=== PATIENT | female | born 1995 | race Caucasian/White ===

== ENCOUNTER 2021-06-14 07:19 | Outpatient (CLI) | payer OTHER | END 2021-06-14 08:09 | disposition home or self-care (01) | LOC: NST 07:19 | PROVIDERS: ATTEND Obstetrics & Gynecology Maternal & Fetal Medicine | DX: Z34.82 Encounter for supervision of other normal pregnancy, second trimester (principal) ==

== ENCOUNTER 2021-07-04 16:04 | Inpatient (IN) | payer OTHER ==
[~2021-07-04] VITALS: Ht 170.2 cm; Wt 76.2 kg
[2021-07-04] MEDS ORDERED: PRENATAL TABLE1 EAC1 PO (17:22)
== END 2021-07-06 12:46 | disposition home or self-care (01) | DRG 833 ==
LOC: OB/GYN 16:04 → LDR 16:04 → OB/GYN 07-05 08:34
PROVIDERS: ADMIT Obstetrics & Gynecology; ATTEND Obstetrics & Gynecology
PROC: 4A1HXCZ Monitoring of Products of Conception, Cardiac Rate, External Approach (ICD-10-PCS; principal; 2021-07-04)
DX: O60.03 Preterm labor without delivery, third trimester (principal); Z3A.30 30 weeks gestation of pregnancy; Z20.822 Contact with and (suspected) exposure to COVID-19

== ENCOUNTER 2021-07-19 07:16 | Outpatient (CLI) | payer OTHER ==
[~2021-07-19 07:16] MED LIST: PRENATAL TABLE1 EAC1 PO
== END 2021-07-19 07:52 | disposition home or self-care (01) ==
LOC: NST 07:16
PROVIDERS: ATTEND Obstetrics & Gynecology
DX: Z34.83 Encounter for supervision of other normal pregnancy, third trimester (principal)

== ENCOUNTER 2021-08-29 04:53 | Inpatient (IN) | payer OTHER ==
[~2021-08-29] VITALS: Ht 170.2 cm; Wt 80.7 kg
== END 2021-08-31 14:07 | disposition home or self-care (01) | DRG 807 ==
LOC: LDR 04:53 → OB/GYN 04:53
PROVIDERS: ADMIT Obstetrics & Gynecology; ATTEND Obstetrics & Gynecology
PROC: 10E0XZZ Delivery of Products of Conception, External Approach (ICD-10-PCS; principal; 2021-08-29)
PROC: 0W8NXZZ Division of Female Perineum, External Approach (ICD-10-PCS; 2021-08-29)
PROC: 4A1HXCZ Monitoring of Products of Conception, Cardiac Rate, External Approach (ICD-10-PCS; 2021-08-29)
DX: O80 Encounter for full-term uncomplicated delivery (principal); Z37.0 Single live birth; Z3A.38 38 weeks gestation of pregnancy; Z20.822 Contact with and (suspected) exposure to COVID-19

== ENCOUNTER 2023-05-07 07:11 | Day surgery (SDC) | payer OTHER ==
[2023-05-06 11:35] LABS: HEMATOCRIT 37.2 % (36.0-45.00); HEMOGLOBIN 13.3 g/dL (12.0-15.00); MEAN CELL VOLUME 93.8 fL (80.00-100.00); MEAN CORPUSCULAR HEMOGLOBIN 33.4 pg (27.00-32.0); MEAN CORPUSCULAR HGB CONC 35.6 g/dl (32.0-36.0); PLATELET COUNT 226 K/uL (150-450); RED BLOOD COUNT 3.97 M/uL (4.00-6.00); RED CELL DISTRIBUTION WIDTH 12.9 % (11.5-14.5)
[2023-05-06 12:04] LABS: INR 1.02; PARTIAL THROMBOPLASTIN TIME 27.6 SECONDS (22.0-34.0); PROTHROMBIN TIME 10.7 SECONDS (9.0-11.5)
[2023-05-06 12:14] LABS: ALBUMIN 3.9 gm/dL (3.4-5.0); BILIRUBIN TOTAL 0.5 mg/dL (0.3-1.2); CALCIUM 9.4 mg/dL (8.5-10.1); CREATININE SERUM 0.61 mg/dL (0.55-1.02); GFR 116.79; GLOBULINA 3.4 G/DL (2.4-3.5); POTASSIUM 4.03 mEq/L (3.5-5.1); TOTAL PROTEIN 7.3 gm/dL (6.4-8.2)
[2023-05-07] MEDS ORDERED: CEFAZOLIN SODIUM 1,000 MG VIAL ONE (10:09)
[2023-05-07] MEDS ORDERED: CHLORHEXIDINE GLUCONATE 120 ML BOTTLE TOP ONE ×3 (11:06→11:30)
[2023-05-07] MEDS ORDERED: POVIDONE-IODINE 118 ML BOTT TOP ONE ×2 (11:07→11:30)
[2023-05-07] MEDS ORDERED: CEFAZOLIN SODIUM 1,000 MG VIAL IV ONE (11:30)
[2023-05-07] MEDS ORDERED: PROMETHAZINE HCL 50 MG/ML AMPUL IM ONE (12:00)
[2023-05-07] MEDS ORDERED: FF) RHO(D) IMMUNE GLOBULIN (POM) IM ONE (12:00)
[2023-05-07] MEDS ORDERED: MORPHINE SULFATE 4 MG/ML VIAL IV PRN (12:00)
[2023-05-08] MEDS ORDERED: NORFLEX100MG PO (08:55)
[2023-05-08] MEDS ORDERED: KETO10TA2 PO (08:55)
== END 2023-05-07 14:20 | disposition home or self-care (01) ==
LOC: CIR.AMB 07:11
PROVIDERS: ATTEND Obstetrics & Gynecology
DX: O02.1 Missed abortion (principal); O72.2 Delayed and secondary postpartum hemorrhage

== ENCOUNTER 2023-05-08 06:11 | Emergency (ER) | payer OTHER ==
[~2023-05-08] VITALS: Ht 170.2 cm; Wt 65.8 kg
[2023-05-08] MEDS ORDERED: KETOROLAC TROMETHAMINE 10 MG TABLET PO STA (07:08)
[2023-05-08] MEDS ORDERED: ORPHENADRINE CITRATE 30 MG/ML AMPUL IM STA (07:09)
[2023-05-08] MEDS ORDERED: NORFLEX100MG PO (08:55)
[2023-05-08] MEDS ORDERED: KETO10TA2 PO (08:55)
== END 2023-05-08 09:16 ==
LOC: ER 06:11
DX: R07.89 Other chest pain (principal); M54.2 Cervicalgia

== ENCOUNTER 2024-12-09 11:08 | Inpatient (IN) | payer OTHER ==
[~2024-12-09] VITALS: Ht 152.4 cm; Wt 77.1 kg
[~2024-12-09 11:08] MED LIST changes: +KETO10TA2 PO; +NORFLEX100MG PO
[2024-12-09 11:53] VITALS: BP 109/75
[2024-12-09] MEDS ORDERED: BETAMETHASONE ACETATE,SOD PHOS 30 MG/5 ML ML IM ONE (13:00)
[2024-12-09 13:36] LABS: BASO % 0.3 % (0.1-1.2); EOS # 0.07 (0.04-0.54); EOS % 0.7 % (0.7-7.0); LYMPH # 1.01 (1.18-3.74); LYMPH % 9.7 % (19.3-53.1); MEAN PLATELET VOLUME 12.80 fl (9.4-12.4); MONO # 0.58 (0.24-0.82); MONO % 5.6 % (4.7-12.5); NEUT # 8.62 (1.56-6.13); NEUT % 83.2 % (34.0-71.1); RED CELL DISTRIBUTION WIDTH 12.7 % (11.6-14.4)
[2024-12-09 13:56] LABS: INR < 0.93
[2024-12-09 14:02] LABS: ALT/SGPT 27.0 U/L (12-78); AST/SGOT 16.0 U/L (15-37); BILIRUBIN TOTAL 0.28 mg/dL (0.3-1.2); BUN CREA RATIO 17.0 (7.0-25.0); CREATININE SERUM 0.59 mg/dL (0.55-1.02); GFR 120.5; GLOBULINA 3.2 G/DL (2.4-3.5); GLUCOSE FASTING 88.0 mg/dL (65-100); OSMOLALITY SERUM 278.0 MOSM/KG (275-295)
[2024-12-09] MEDS ORDERED: MAGNESIUM SULFATE IN WATER 100 ML IV SCH (14:30)
[2024-12-09] MEDS ORDERED: AMPICILLIN SODIUM 2,000 MG VIAL IV ONE (14:30)
[2024-12-09] MEDS ORDERED: RINGERS SOLUTION,LACTATED 1,000 ML IV SCH (14:30)
[2024-12-09] MEDS ORDERED: MAGNESIUM SULFATE IN WATER 500 ML IV SCH (14:30)
[2024-12-09 15:56] VITALS: BP 109/72
[2024-12-09] MEDS ORDERED: AMPICILLIN SODIUM 1,000 MG VIAL IV SCH (17:00)
[2024-12-09 19:32] VITALS: BP 108/71; O2SAT 98
[2024-12-09 23:25] VITALS: BP 100/60
[2024-12-10 03:49] VITALS: BP 91/57
[2024-12-10 06:20] VITALS: BP 96/58; O2SAT 97
[2024-12-10 12:04] VITALS: BP 99/65
[2024-12-10 12:10] VITALS: BP 97/59
[2024-12-10] MEDS ORDERED: BETAMETHASONE ACETATE,SOD PHOS 30 MG/5 ML ML IM ONE (13:00)
== END 2024-12-10 13:21 | disposition home or self-care (01) | DRG 833 ==
LOC: NST 11:08 → LDR 13:09
PROVIDERS: Obstetrics & Gynecology Gynecology; ADMIT Obstetrics & Gynecology; ATTEND Obstetrics & Gynecology
PROC: 4A1HXCZ Monitoring of Products of Conception, Cardiac Rate, External Approach (ICD-10-PCS; principal; 2024-12-09)
PROC: BY4FZZZ Ultrasonography of Third Trimester, Single Fetus (ICD-10-PCS; 2024-12-09)
PROC: BU4CZZZ Ultrasonography of Uterus and Ovaries (ICD-10-PCS; 2024-12-09)
DX: O60.03 Preterm labor without delivery, third trimester (principal); O36.8130 Decreased fetal movements, third trimester, not applicable or unspecified; O26.843 Uterine size-date discrepancy, third trimester; Z3A.31 31 weeks gestation of pregnancy

== ENCOUNTER 2024-12-15 12:13 | Inpatient (IN) | payer OTHER ==
[~2024-12-15] VITALS: Ht 170.2 cm; Wt 77.6 kg
[~2024-12-15 12:13] MED LIST changes: +MAGNESIUM SULFATE IN WATER 0.04 GM/ML IV.SOLN IV ONE; +MAGNESIUM SULFATE IN WATER 4 GM/100 ML PIGGYBACK IV ONE
[2024-12-15 12:20] VITALS: BP 107/73
[2024-12-15] MEDS ORDERED: MAGNESIUM SULFATE IN WATER 4 GM/100 ML PIGGYBACK IV ONE (12:30)
[2024-12-15] MEDS ORDERED: INDOMETHACIN 50 MG CAPSULE PO ONE (12:30)
[2024-12-15] MEDS ORDERED: RINGERS SOLUTION,LACTATED 1,000 ML IV SCH (12:30)
[2024-12-15] MEDS ORDERED: MAGNESIUM SULFATE IN WATER 500 ML IV SCH (12:30)
[2024-12-15] MEDS ORDERED: PRENATA CHEWAB1 EACH PO (12:59)
[2024-12-15] MEDS ORDERED: NIFEDIPINE20 MG PO (13:01)
[2024-12-15 13:02] LABS: BASO % 0.3 % (0.1-1.2); EOS # 0.21 (0.04-0.54); EOS % 1.8 % (0.7-7.0); LYMPH # 1.10 (1.18-3.74); LYMPH % 9.6 % (19.3-53.1); MEAN PLATELET VOLUME 12.10 fl (9.4-12.4); MONO # 0.77 (0.24-0.82); MONO % 6.7 % (4.7-12.5); NEUT # 9.33 (1.56-6.13); NEUT % 81.0 % (34.0-71.1); RED CELL DISTRIBUTION WIDTH 12.6 % (11.6-14.4)
[2024-12-15 13:13] LABS: URINE APPEARANCE Clear; URINE BILIRRUBIN Negative (NEGATIVE); URINE BLOOD Negative; URINE COLOR Yellow; URINE GLUCOSE Negative (NEGATIVE); URINE KETONE Negative (NEGATIVE); URINE LEUKOCYTE Negative; URINE NITRATE Negative; URINE PROTEIN Negative (NEGATIVE); URINE UROBILINOGEN 0.2 E.U./dl
[2024-12-15 13:17] LABS: URINE BACTERIA 47.9 uL (0.0-1933); URINE EPITHELIAL CELLS 16.4 uL (0.0-38.8); URINE RBC 2.6 uL (0.0-20.8); URINE WBC 7.2 uL (0.0-23.2)
[2024-12-15 13:28] LABS: INR < 0.93
[2024-12-15 13:30] LABS: URINE CAST 0.00 uL (0.0-1.40)
[2024-12-15 13:47] LABS: ALT/SGPT 50.0 U/L (12-78); AST/SGOT 18.0 U/L (15-37); BILIRUBIN TOTAL 0.44 mg/dL (0.3-1.2); BUN CREA RATIO 29.0 (7.0-25.0); CREATININE SERUM 0.42 mg/dL (0.55-1.02); GFR 178.38; GLOBULINA 3.5 G/DL (2.4-3.5); GLUCOSE FASTING 78.0 mg/dL (65-100); OSMOLALITY SERUM 272.0 MOSM/KG (275-295)
[2024-12-15 15:04] VITALS: BP 127/70
[2024-12-15 19:30] VITALS: BP 102/65
[2024-12-15 23:31] VITALS: BP 90/50
[2024-12-16 04:14] VITALS: BP 96/62
[2024-12-16 06:17] VITALS: BP 93/60; O2SAT 97
[2024-12-16 10:40] VITALS: BP 106/76
[2024-12-16 15:56] VITALS: BP 113/79
[2024-12-16] MEDS ORDERED: INDOMETHACIN 25 MG CAPSULE PO SCH (18:30)
[2024-12-16 20:20] VITALS: BP 117/73
[2024-12-16 23:25] VITALS: BP 104/69
[2024-12-17 03:10] VITALS: BP 93/60
[2024-12-17 06:26] VITALS: BP 102/63; O2SAT 99
[2024-12-17 12:23] VITALS: BP 132/83; O2SAT 100
[2024-12-17 12:59] VITALS: BP 96/61
[2024-12-17 15:49] VITALS: BP 115/77
[2024-12-18 00:06] VITALS: BP 103/67
[2024-12-18 10:19] VITALS: BP 105/71
[2024-12-18] MEDS ORDERED: NIFEDIPINE 30 MG TAB.SA.OSM PO SCH (14:13)
[2024-12-18 16:00] VITALS: BP 110/73
[2024-12-19 01:14] VITALS: BP 109/73
[2024-12-19 09:50] VITALS: BP 108/73
[2024-12-19 16:19] VITALS: BP 113/75
[2024-12-19] MEDS ORDERED: ENOXAPARIN SODIUM 40 MG/0.4 ML SYRINGE SUBCUTANEO SCH (17:00)
[2024-12-20] VITALS: BP 103/61
[2024-12-20 08:15] VITALS: BP 111/74
[2024-12-20 13:35] VITALS: BP 111/76
[2024-12-20] MEDS ORDERED: MAGNESIUM SULFATE IN WATER 500 ML IV SCH (14:45)
[2024-12-20] MEDS ORDERED: RINGERS SOLUTION,LACTATED 1,000 ML IV SCH (15:15)
[2024-12-20 15:27] VITALS: BP 110/78
[2024-12-20 19:27] VITALS: BP 98/67
[2024-12-20 23:13] VITALS: BP 102/68
[2024-12-21 04:17] VITALS: BP 95/68
[2024-12-21 06:20] VITALS: BP 107/71; O2SAT 99
[2024-12-21 09:58] VITALS: BP 119/81
[2024-12-21 15:41] VITALS: BP 105/66
[2024-12-22 00:54] VITALS: BP 95/60
[2024-12-22 08:42] VITALS: BP 106/73
[2024-12-22 17:29] VITALS: BP 101/66
[2024-12-23 00:30] VITALS: BP 108/68
[2024-12-23 08:49] VITALS: BP 108/74
== END 2024-12-23 10:24 | disposition home or self-care (01) | DRG 833 ==
LOC: LDR 12:13 → OB/GYN 12-17 10:27 → LDR 12-20 14:55 → OB/GYN 12-21 08:31
PROVIDERS: ADMIT Obstetrics & Gynecology Gynecology; ATTEND Obstetrics & Gynecology Gynecology
PROC: 4A1HXCZ Monitoring of Products of Conception, Cardiac Rate, External Approach (ICD-10-PCS; principal; 2024-12-15)
PROC: BY4FZZZ Ultrasonography of Third Trimester, Single Fetus (ICD-10-PCS; 2024-12-22)
PROC: BU4CZZZ Ultrasonography of Uterus and Ovaries (ICD-10-PCS; 2024-12-22)
DX: O60.03 Preterm labor without delivery, third trimester (principal); O26.843 Uterine size-date discrepancy, third trimester; O36.8130 Decreased fetal movements, third trimester, not applicable or unspecified; O26.893 Other specified pregnancy related conditions, third trimester; R10.20 Pelvic and perineal pain unspecified side; Z3A.33 33 weeks gestation of pregnancy

== ENCOUNTER 2025-01-18 11:33 | Outpatient (CLI) | payer OTHER ==
[~2025-01-18 11:33] MED LIST changes: -MAGNESIUM SULFATE IN WATER 0.04 GM/ML IV.SOLN IV ONE; -MAGNESIUM SULFATE IN WATER 4 GM/100 ML PIGGYBACK IV ONE; +NIFEDIPINE20 MG PO; +PRENATA CHEWAB1 EACH PO
== END 2025-01-18 12:40 | disposition home or self-care (01) ==
LOC: NST 11:33
PROVIDERS: ATTEND Obstetrics & Gynecology
DX: Z34.83 Encounter for supervision of other normal pregnancy, third trimester (principal)

== ENCOUNTER 2025-01-26 04:29 | Inpatient (IN) | payer OTHER ==
[~2025-01-26] VITALS: Ht 170.2 cm; Wt 79.8 kg
[2025-01-26] MEDS ORDERED: OXYTOCIN 500 ML IV SCH (04:45)
[2025-01-26] MEDS ORDERED: MORPHINE SULFATE 4 MG/ML VIAL IV PRN (04:45)
[2025-01-26 05:22] VITALS: BP 125/68
[2025-01-26 06:17] LABS: BASO % 0.4 % (0.1-1.2); EOS # 0.09 (0.04-0.54); EOS % 0.9 % (0.7-7.0); LYMPH # 1.59 (1.18-3.74); LYMPH % 16.4 % (19.3-53.1); MEAN PLATELET VOLUME 13.30 fl (9.4-12.4); MONO # 0.47 (0.24-0.82); MONO % 4.8 % (4.7-12.5); NEUT # 7.49 (1.56-6.13); NEUT % 77.2 % (34.0-71.1); RED CELL DISTRIBUTION WIDTH 12.6 % (11.6-14.4)
[2025-01-26 06:20] LABS: URINE APPEARANCE Clear; URINE BILIRRUBIN Negative (NEGATIVE); URINE BLOOD Negative; URINE COLOR Yellow; URINE GLUCOSE Negative (NEGATIVE); URINE KETONE Negative (NEGATIVE); URINE LEUKOCYTE Trace; URINE NITRATE Negative; URINE PROTEIN Negative (NEGATIVE); URINE UROBILINOGEN 0.2 E.U./dl
[2025-01-26 06:21] LABS: INR < 0.93
[2025-01-26 06:23] LABS: URINE BACTERIA 831.6 uL (0.0-1933); URINE EPITHELIAL CELLS 17.3 uL (0.0-38.8); URINE RBC 2.4 uL (0.0-20.8); URINE WBC 12.4 uL (0.0-23.2)
[2025-01-26 06:40] LABS: URINE CAST 0.00 uL (0.0-1.40)
[2025-01-26 07:09] LABS: ALT/SGPT 24.0 U/L (12-78); AST/SGOT 15.0 U/L (15-37); BILIRUBIN TOTAL 0.36 mg/dL (0.3-1.2); BUN CREA RATIO 23.0 (7.0-25.0); CREATININE SERUM 0.64 mg/dL (0.55-1.02); GFR 109.71; GLOBULINA 3.5 G/DL (2.4-3.5); GLUCOSE FASTING 116.0 mg/dL (65-100); OSMOLALITY SERUM 279.0 MOSM/KG (275-295)
[2025-01-26 07:33] VITALS: BP 118/81
[2025-01-26] MEDS ORDERED: LIDOCAINE HCL 1% 10ML VIAL ONE (11:53)
[2025-01-26] MEDS ORDERED: ERYTHROMYCIN BASE OPHT 1GM EACH TUBE OP ONE (11:53)
[2025-01-26] MEDS ORDERED: OXYTOCIN 20 UNITS/1000ML RL PIGGYBAG IV ONE (11:53)
[2025-01-26] MEDS ORDERED: CHLORHEXIDINE GLUCONATE 120 ML BOTTLE TOP ONE (11:53)
[2025-01-26 12:00] VITALS: BP 131/80
[2025-01-26 12:36] VITALS: BP 114/52
[2025-01-26 12:45] VITALS: BP 126/75
[2025-01-26] MEDS ORDERED: OXYTOCIN 1,000 ML IV SCH (13:00)
[2025-01-26] MEDS ORDERED: CHLORHEXIDINE GLUCONATE 120 ML BOTTLE TP SCH (13:00)
[2025-01-26 16:35] VITALS: BP 133/77
[2025-01-27] VITALS: BP 106/71
[2025-01-27 08:00] VITALS: BP 106/71
[2025-01-27 08:10] LABS: BASO % 0.3 % (0.1-1.2); EOS # 0.08 (0.04-0.54); EOS % 0.7 % (0.7-7.0); LYMPH # 1.69 (1.18-3.74); LYMPH % 14.9 % (19.3-53.1); MEAN PLATELET VOLUME 13.30 fl (9.4-12.4); MONO # 0.80 (0.24-0.82); MONO % 7.0 % (4.7-12.5); NEUT # 8.72 (1.56-6.13); NEUT % 76.7 % (34.0-71.1); RED CELL DISTRIBUTION WIDTH 12.8 % (11.6-14.4)
[2025-01-27] MEDS ORDERED: FF) RHO(D) IMMUNE GLOBULIN (POM) IM ONE (09:00)
[2025-01-27 16:00] VITALS: BP 115/78
[2025-01-28] VITALS: BP 100/66
[2025-01-28 08:00] VITALS: BP 107/73
[2025-01-28] MEDS ORDERED: FF) RHO(D) IMMUNE GLOBULIN (POM) IM ONE (08:45)
== END 2025-01-28 16:09 | disposition home or self-care (01) | DRG 807 ==
LOC: LDR 04:29 → OB/GYN 04:29
PROVIDERS: Obstetrics & Gynecology; Obstetrics & Gynecology Gynecology; ADMIT Obstetrics & Gynecology; ATTEND Obstetrics & Gynecology
PROC: 10E0XZZ Delivery of Products of Conception, External Approach (ICD-10-PCS; principal; 2025-01-26)
PROC: 0HQ9XZZ Repair Perineum Skin, External Approach (ICD-10-PCS; 2025-01-26)
PROC: 0W8NXZZ Division of Female Perineum, External Approach (ICD-10-PCS; 2025-01-26)
PROC: 4A1HXCZ Monitoring of Products of Conception, Cardiac Rate, External Approach (ICD-10-PCS; 2025-01-26)
DX: O70.0 First degree perineal laceration during delivery (principal); Z37.0 Single live birth; Z3A.38 38 weeks gestation of pregnancy